=== PATIENT | female | born 1985 | race Caucasian/White ===

== ENCOUNTER 2018-12-18 20:50 | Outpatient (CLI) | payer MEDICAID, SELFPAY ==
[2017-07-27 12:12] VITALS: BMI 38.5
[2018-12-18 21:09] VITALS: BMI 37.8
[2018-12-18 22:29] LABS: Bacteria 0 SEEN /hpf (None Seen); Mucous, Urine 0 SEEN /hpf (<or=2+); Red Blood Cells-Urine 0 SEEN /hpf (0-5); White Blood Cells 0 SEEN /hpf (0-5)
[2018-12-18 22:30] LABS: Color, Urine Straw (Yellow); Glucose, Dipstick Normal (Normal); Ketone-Dipstick 50 mg/dl (Negative); Leukocyte Esterase-Dipstick Negative /ul (Negative); Nitrite-Dipstick Negative (Negative); Occult Blood-Urine Negative /ul (Negative); Protein-Dipstick Negative (Negative); Urine Bilirubin Dipstick Negative (Negative); Urine Clarity Clear (Clear); Urine Urobilinogen Normal (Normal)
[2018-12-18 22:35] LABS: Squamous Epithelial Cells - UA 0-5 SEEN /hpf (5-10)
--- NOTE | 2018-12-18 23:21 | OB.TRI.NOTE ---
- Problem List (1) 33 weeks gestation of Status: Acute (2) contractions Status: Acute History of Present Illness Date of Service: 12/18/18 Was patient seen by the physician?: Yes Reason For Visit: R/O LABOR Final NIK: 02/02/19 Final NIK Source: US >20 weeks Gestational age: 33 Weeks and 4 Days History of Present Illness: 33yo at 33 3/7wga presents with c/o contractions. She is here with her house manager who relates cervical exam at 6pm 1cm, 50% effacement. Patient with lower abdominal cramping and lower back pain. She has dry cough. No fever, chills, nausea, vomiting, stomach upset, diarrhea, dysuria, frequency, hematuria, vaginal discharge or discomfort. She has hx single 36w delivery and last two labors were precipitous with less than 1 hour of labor. Fetus remains active. No leaking of fluid or vaginal bleeding. Allergies No Known Allergies Allergy (Verified 07/27/17 13:32) Laboratory Studies: Laboratory Tests 12/18/18 Range/Units 22:25 Urine Color Straw (Yellow) Urine Clarity Clear (Clear) Urine pH 7.0 (5.0 - 8.0) Ur Specific [place] 1.010 (1.002-1.030) Urine Protein Negative (Negative) mg/dl Urine Glucose (UA) Normal (Normal) mg/dl Urine Ketones 50 H (Negative) mg/dl Urine Occult Blood Negative (Negative) /ul Urine Nitrite Negative (Negative) Urine Bilirubin Negative (Negative) mg/dL Urine Urobilinogen Normal (Normal) mg/dl Ur Leukocyte Esterase Negative (Negative) /ul Urine RBC 0 SEEN (0-5) /hpf Urine WBC 0 SEEN (0-5) /hpf Ur Squamous Epith Cells 0-5 SEEN (5-10) /hpf Urine Bacteria 0 SEEN (None Seen) /hpf Urine Mucus 0 SEEN (<or=2+) /hpf Physical Exam Vitals: AVSS General: Alert, Oriented x3, Cooperative, No apparent distress HEENT: Atraumatic, Normocephalic Abdomen: Soft, Non Tender, Non-Distended Neurological: Neuro grossly intact BOILERMAKER PIPE FITTER: Normal external genitalia Estimated gestational size: Appropriate for gestational size Presentation: Cephalic Cervix Dilation (cm): 2 Station: -3 Effacement (%): 50 NST - FHR Rate Baby A Baseline: 135 Variability:: Moderate Accelerations:: 10 x 10 Decelerations:: None NST Reactive:: Appropriate for gestational age, Non-Reactive FHR Category:: Category I Uterine Activity:: irritability to 3-4/10 min Impression/Plan 33yo with contractions. -U/A neg -FFN pending -Bedside US performed given hx 26w anatomy and dating US with GARIMA 29cm. Fetus normal in appearance. Pt indicated no GDM screening and no f/u US as yet. US today shows GARIMA 13cm, MVP 5.2cm. CEPHALIC, FUNDAL placenta, EFW 2045g (53rd% Billy), fetus active. Reviewed findings reassuring and non-concerning with patient and house manager. Addendum at 0024 on 12/19/18: Patient subsequently had emesis x 1 and FFN negative. Reviewed with patient likely had viral syndrome with associated false labor. FHR Cat I. Will obtain flu swab and discharge to home. Reviewed importance of adequate hydration, rest. Si/sx dehydration requiring further attention reviewed. Offered Tamiflu - r/b reviewed, pt declines. f/u with house manager as scheduled. Code Visit Office Visits / Consults: [id number] OV L2 New
--- NOTE | 2018-12-18 23:26 | OB.TRI.HP_ITS ---
- Problem List (1) 33 weeks gestation of Status: Acute (2) contractions Status: Acute History of Present Illness Date of Service: 12/18/18 Was patient seen by the physician?: Yes Reason For Visit: R/O LABOR Final NIK: 02/02/19 Final NIK Source: US >20 weeks Gestational age: 33 Weeks and 4 Days History of Present Illness: 33yo at 33 3/7wga presents with c/o contractions. She is here with her driver's license reviewing officer who relates cervical exam at 6pm 1cm, 50% effacement. Patient with lower abdominal cramping and lower back pain. She has dry cough. No fever, chills, nausea, vomiting, stomach upset, diarrhea, dysuria, frequency, hematuria, vaginal discharge or discomfort. She has hx single 36w delivery and last two labors were precipitous with less than 1 hour of labor. Fetus remains active. No leaking of fluid or vaginal bleeding. Allergies No Known Allergies Allergy (Verified 07/27/17 13:32) Laboratory Studies: Laboratory Tests 12/18/18 Range/Units 22:25 Urine Color Straw (Yellow) Urine Clarity Clear (Clear) Urine pH 7.0 (5.0 - 8.0) Ur Specific [place] 1.010 (1.002-1.030) Urine Protein Negative (Negative) mg/dl Urine Glucose (UA) Normal (Normal) mg/dl Urine Ketones 50 H (Negative) mg/dl Urine Occult Blood Negative (Negative) /ul Urine Nitrite Negative (Negative) Urine Bilirubin Negative (Negative) mg/dL Urine Urobilinogen Normal (Normal) mg/dl Ur Leukocyte Esterase Negative (Negative) /ul Urine RBC 0 SEEN (0-5) /hpf Urine WBC 0 SEEN (0-5) /hpf Ur Squamous Epith Cells 0-5 SEEN (5-10) /hpf Urine Bacteria 0 SEEN (None Seen) /hpf Urine Mucus 0 SEEN (<or=2+) /hpf Physical Exam Vitals: AVSS General: Alert, Oriented x3, Cooperative, No apparent distress HEENT: Atraumatic, Normocephalic Abdomen: Soft, Non Tender, Non-Distended Neurological: Neuro grossly intact SPEECH CORRECTION ASSISTANT: Normal external genitalia Estimated gestational size: Appropriate for gestational size Presentation: Cephalic Cervix Dilation (cm): 2 Station: -3 Effacement (%): 50 NST - FHR Rate Baby A Baseline: 135 Variability:: Moderate Accelerations:: 10 x 10 Decelerations:: None NST Reactive:: Appropriate for gestational age, Non-Reactive FHR Category:: Category I Uterine Activity:: irritability to 3-4/10 min Impression/Plan 33yo with contractions. -U/A neg -FFN pending -Bedside US performed given hx 26w anatomy and dating US with GARIMA 29cm. Fetus normal in appearance. Pt indicated no GDM screening and no f/u US as yet. US today shows GARIMA 13cm, MVP 5.2cm. CEPHALIC, FUNDAL placenta, EFW 2045g (53rd% Billy), fetus active. Reviewed findings reassuring and non-concerning with patient and driver's license reviewing officer. Addendum at 0024 on 12/19/18: Patient subsequently had emesis x 1 and FFN negative. Reviewed with patient likely had viral syndrome with associated false labor. FHR Cat I. Will obtain flu swab and discharge to home. Reviewed importance of adequate hydration, rest. Si/sx dehydration requiring further attention reviewed. Offered Tamiflu - r/b reviewed, pt declines. f/u with driver's license reviewing officer as scheduled. Code Visit Office Visits / Consults: [id number] OV L2 New
[2018-12-18 23:47] LABS: Fetal Fibronectin Negative
[2018-12-19 00:46] VITALS: RESP 20
== END 2018-12-19 00:46 | disposition home or self-care (01) ==
LOC: WPOUT 20:55 → WP 20:56
PROVIDERS: Referring Provider Obstetrics & Gynecology; Visit Provider Obstetrics & Gynecology
DX: O47.03 False labor before 37 completed weeks of gestation, third trimester (principal); O21.9 Vomiting of pregnancy, unspecified; Z3A.33 33 weeks gestation of pregnancy
CPT/HCPCS: 59025; 59050; 81001; 82731; 87804; 99218; G0378

== ENCOUNTER → 2020-08-10 12:22 | Outpatient (CLI) | payer MEDICAID, SELFPAY ==
--- NOTE | 2020-08-10 12:23 | US_ITS ---
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 TECHNIQUE: Transabdominal TECHNICAL QUALITY: Adequate. FINDINGS: There is a single intrauterine fetus. The fetus is in a variable presentation. There is demonstrated cardiac activity with a heart rate of 139 bpm. There is a normal amniotic fluid volume. The largest amniotic fluid pocket measures 3.1 cm x 1.7 cm. The amniotic fluid index (GARIMA) is within normal limits. The placenta is anterior in location and is not low lying. There are Grade 0 placental changes. The cervix measures 5.2 cm in length. BIOMETRY: BPD: 3.11 cm: 15 weeks, 6 days HC: 12.55 cm: 16 weeks, 3 days AC: 11.17 cm: 17 weeks, 1 days FL: 1.39 cm: 14 weeks, 1 days Age by LMP: 16 weeks, 4 days. NIK by LMP: 01/22/2020. age by current US: 16 weeks. 6 weeks, 0 days. NIK by current US: 01/26/2020. Estimated weight: 131 grams, +/- 19 grams, 5th percentile. Several linear densities are seen within the amniotic fluid suggestive of small bands. The posterior nuchal region of the fetus is thickened. 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 It is a female fetus. Urinary syndrome should be ruled out. There is deformity and foreshortening of the lower extremities. US/OB Limited With Biometrics IMPRESSION: Single live uterine gestation with a mean gestational age of 16 weeks. Multiple and mildly just described. The physician was notified of the results. Electronically Signed: Mehrdad Almaraz, at 14:14 EDT , Service support ,
[2020-08-10 15:01] LABS: Absolute Lymphocyte Count 2.82 X10^3/uL (0.83-4.51); Absolute Neutrophil Count 8.8 X10^3/uL (2.0-7.7); Basophil# 0.02 X10^3/uL; Basophil% 0.2 % (0-1); Eosinophil# 0.06 X10^3/uL; Eosinophils% 0.5 % (0-5); Hemoglobin 14.1 g/dL (12.0-15.0); Lymphocyte # 2.82 X10^3/ul (4.0); Lymphocyte % 22.7 % (19-41); Mean Corp Hgb Conc 33.6 g/dL (32-36); Mean Corpuscular Hgb 30.7 pg (27.0-32.0); Mean Corpuscular Volume 91.5 fL (81-99); Mean Platelet Vol. 10.9 fl (6.2-12.0); Monocyte% 5.6 % (0-10); NRBC Flagged by Analyzer 0 % (0-5); Neutrophil # 8.78 X10^3/uL (2.7-7.7); Neutrophil % 70.6 % (47-70); Platelet Count 244 K/mm3 (150-450); RBC Distribution Width CV 13.2 % (11.6-14.6); RBC Distribution Width SD 44.2 fl (35.1-43.9); Red Blood Count 4.59 M/mm3 (4.2-5.4); White Blood Count 12.4 K/mm3 (4.4-11.0)
[2020-08-10 16:08] LABS: HIV - WCH Non-Reactive (Nonreactive); Hepatitis B Surface Antigen Non-Reactive (Nonreactive); Hepatitis C Antibody Non-Reactive (Nonreactive)
[2020-08-10 18:13] LABS: Amphetamine Urine VISTA NEGATIVE (<1000 ng/mL); Barbiturate Urine VISTA NEGATIVE (< 200 ng/mL); Benzodiazepine Urine VISTA NEGATIVE (< 200 ng/mL); Cocaine Urine VISTA NEGATIVE (< 300 ng/mL); Ecstacy Urine VISTA NEGATIVE (< 500 ng/mL); Methadone Urine VISTA NEGATIVE (< 300 ng/mL); PCP Urine VISTA NEGATIVE (< 25 ng/mL); THC Urine VISTA NEGATIVE (< 50 ng/mL); Vista UDS pH Range 5
[2020-08-16 02:11] LABS: Rapid Plasmin Reagin (RPR) NONREACTIVE (NONREACTIVE)
== END ==
PROVIDERS: Referring Provider Obstetrics & Gynecology; Visit Provider Obstetrics & Gynecology
DX: O09.90 Supervision of high risk pregnancy, unspecified, unspecified trimester (principal); O09.92 Supervision of high risk pregnancy, unspecified, second trimester; Z3A.00 Weeks of gestation of pregnancy not specified
CPT/HCPCS: 36415; 76816; 80307; 85025; 86592; 86703; 86803; 86850; 86900; 86901; 87086; 87088; 87340

== ENCOUNTER 2020-09-04 18:45 | Inpatient (IN) | payer MEDICAID, SELFPAY ==
[2020-09-04] VITALS (9 sets, daily range): BP systolic 107–124; BP diastolic 61–76; PULSE 84–107; TEMP 36.9–37.3; O2SAT 98; BMI 37.1
[2020-09-04] MEDS: Lactated Ringers 1,000 ML 50 ML IV (19:25)
[2020-09-04 19:54] LABS: Hemoglobin 12.7 g/dL (12.0-15.0); Mean Corp Hgb Conc 33.4 g/dL (32-36); Mean Corpuscular Hgb 30.9 pg (27.0-32.0); Mean Corpuscular Volume 92.5 fL (81-99); Mean Platelet Vol. 11.4 fl (6.2-12.0); Platelet Count 227 K/mm3 (150-450); RBC Distribution Width CV 13.2 % (11.6-14.6); RBC Distribution Width SD 44.7 fl (35.1-43.9); Red Blood Count 4.11 M/mm3 (4.2-5.4); White Blood Count 10.4 K/mm3 (4.4-11.0)
[2020-09-04] MEDS: miSOPROStol 200 MCG Tablet 800 MCG VAGINAL (20:10)
[2020-09-05] VITALS (14 sets, daily range): BP systolic 102–125; BP diastolic 53–62; PULSE 74–90; RESP 18; TEMP 36.7–37.5; O2SAT 99
[2020-09-05] MEDS: miSOPROStol 200 MCG Tablet 400 MCG VAGINAL ×2 (00:05→04:25)
[2020-09-05] MEDS: Acetaminophen 325 MG Tablet 650 MG PO (03:20)
--- NOTE | 2020-09-05 05:05 | HP.PCM_ITS ---
- Problem List (1) Abnormal ultrasound of both kidneys Status: Acute Comment: bilateral echodense kidneys, ? 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 Also noted to have limb abnormalities. Referred to [facility]. Discussed may need to transfer care to [facility]- NOT OBSERVED ON SCAN 08/16 (5) Cleft lip of fetus Status: Acute (6) Cystic hygroma of fetus Status: Acute Comment: and facial edema (7) cardiac anomaly complicating , antepartum Status: Acute Comment: Chest: heart ratio 0.5 at this time (08/16) midline shift of heart, unable to adequately visualize cardiac structures (8) demise before 22 weeks with retention of fetus Status: Acute (9) Grand multiparity Status: Acute Comment: 8 prior vaginal deliveries at home. (10) History of hemorrhage Status: Acute Comment: At home with delivery of first child. Did not require transfer to hospital. (11) History of delivery Status: Acute Comment: Reports second baby delivered at 36 weeks. All other deliveries term (12) Increased nuchal translucency space on ultrasound Status: Acute Comment: Noted on ultrasound 08/10. Discussed strongly associated with genetic abnormalities. Refer to [facility]. Recommended genetic testing. Patient wishes to wait to discuss with maternal medicine at visit. 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 (14) Omphalocele of fetus in apar[place] , antepartum Status: Acute Comment: likely containing bladder (15) Status: Acute Qualifiers: Comment: Declined invasive testing with [facility]. NIPT done at [facility] office with expanded gene panel. (16) Supervision of high risk , antepartum Status: Acute Comment: NIK 01/21/21, Girl, PC: Niki James, Isela, Emilie, Estela, Geovany Farmer Jessica, Spouse: Darian History and Physical Date of Admission: 09/05/20 Intake Vital Signs 09/04/20 Height 5 ft 6 in 09/04/20 Weight: 230 lb 09/04/20 BP 114/80 Intake Visit Reasons: no FHT wt manager oracle database Chief Complaint: est ob, no FHT Hydraulic Chair Assembler Required: No Is patient in pain?: No Allergies No Known Allergies Allergy (Verified 09/04/20 13:54) Medications Pnv No.95/Ferrous Fum/Folic AC [ Formula] 1 ea PO DAILY 12/18/18 [History Confirmed 09/04/20] Last Menstral Period: 04/16/20 Zika: Zika virus screening: Negative : No PFSH PFSH Surgical History History of mandibular surgery (Resolved) Family History Father Cancer Grandmother Cancer x2 Social History (Updated 09/05/20 @ 04:[address] Shahida Dunham MD) Smoking Status: Never smoker alcohol intake: never substance use type: does not use caffeine: No additional social history: - Darian Pregancy History 13 Elective abortions Hx Para 8 Spontaneous abortions 4 Hx # Term Pregnancies Ectopic pregnancies Hx # Pregnancies Multiple births # of living children Past Pregnancies Del. Date Name GA/Weeks Outcome Route Bth Weight Infant Gen Labor Lgth Anesthesia Del Locatn Provider FOB Unknown Erika 2005 live - full term Home Unknown Niki 2007 36 live - Home Unknown Isela 2008 live - full term Home Unknown Emilie 2010 live - full term Home Unknown Estela 2012 live - full term Home Unknown Darian 2015 live - full term Home Unknown Geovany 2017 live - full term Home Unknown Tisha 2019 live - full term Home Delivery Date: PP hemorrhage but controlled at home nah Delivery Date: spotting at beginning of no other issues nah Delivery Date: No issues during or delivery Harley,Emilie Delivery Date: No issues during or delivery Harley,Emilie Delivery Date: No issues during or delivery Harley,Emilie Delivery Date: No issues during or delivery Harley,Emilie Delivery Date: No issues during or delivery Harley,Emilie Delivery Date: No issues during or delivery Emilie Souza HPI no FHT wt manager oracle database: Details: LANCE GEE is a 35 year old who presents for Evaluation secondary to the manager oracle database not being able to hear a heartbeat at home. Patient had a diagnosed with multiple anomalies including heart abnormalities, ambiguous genitalia, multiple anomalies of the brain, and shortened limbs. Patient denies any contractions or vaginal bleeding denies movement. OB Visit NIK Calculator Estimated Delivery Date Method Current WG Current Estimate 01/21/21 LMP (Certain) 20w 2d Other Estimates 01/19/21 Ultrasound #1 20w 4d Expected Delivery Route/Plan Specific Issue/Plans Initial Weight: Not Recorded Date EGA Weight BP Urine Prot Glucose FHR FuHt Pres Dilation Effaced St Visit Note 08/10/20 16w 4d 227 lb 108/70 139 GP - JAMIL from manager oracle database for abnormal ultrasound. US done today shows thickened NT and evidence of amniotic bands with limb abnormalities. Rec MFM FTC eval. 08/24/20 18w 4d 226 lb 4 oz 120/76 Negative Negative 140 GP - no cramping or bleeding. Feeling flutters of movement. Seen by MFM and diagnosed with multiple anomalies. Denies questions at this time. Next MFM appt 09/11. 09/04/20 20w 1d 230 lb 114/80 0 SM- no fht seen, no color doppler flow Diagnostics Diagnostics Diagnostics Blood Type AB POSITIVE 09/04/20 Antibody Screen NEGATIVE 09/04/20 HIV 1&2 Antibody Non-Reactive (Nonreactive) 08/10/20 Hgb 12.7 g/dL (12.0-15.0) 09/04/20 Hct 38.0 % (37-47) 09/04/20 RPR NONREACTIVE (NONREACTIVE) 08/10/20 Details: HIV: Urine Culture: Sequential Screen: NIPT Screen: ROS Const Reports system reviewed and no additional complaints, except as docu Card Reports system reviewed and no additional complaints, except as docu Resp Reports system reviewed and no additional complaints, except as docu GI Reports system reviewed and no additional complaints, except as docu, Reports nausea Reports system reviewed and no additional complaints, except as docu Musc Reports system reviewed and no additional complaints, except as docu Exam Const General: cooperative, healthy appearing, comfortable, anxious HENMT Head: normal to inspection Nose: external nose normal Face and sinus: normal facial exam Neck Neck: normal visual inspection, full ROM, no lymphadenopathy Thyroid: thyroid normal Chest Chest palpation & inspection: normal inspection of the chest Resp Effort & Inspection: normal respiratory effort GI Inspection: normal to inspection Palpation: soft, other (gravid uterus) Other: vertex and appropriate size for gestational age Other: Cervical Exam: Extrem General: pedal edema Assessment & Plan Problems 1. Z34.90 Declined invasive testing with [facility]. NIPT done at [facility] office with expanded gene panel. 2. Supervision of high risk , antepartum O09.90 NIK 01/21/21, Girl, PC: Niki James Leah, Estela Phan, Geovany Farmer Jessica, Spouse: Darian 3. Increased nuchal translucency space on ultrasound O28.3 Noted on ultrasound 08/10. Discussed strongly associated with genetic abnormalities. Refer to [facility]. Recommended genetic testing. Patient wishes to wait to discuss with maternal medicine at visit. 4. Amniotic band syndrome Q79.8 Multiple bands noted on ultrasound 08/10. Also noted to have limb abnormalities. Referred to [facility]. Discussed may need to transfer care to [facility]- NOT OBSERVED ON SCAN 08/16 5. Grand multiparity Z64.1 8 prior vaginal deliveries at home. 6. History of delivery Z87.51 Reports second baby delivered at 36 weeks. All other deliveries term 7. History of hemorrhage Z87.59 At home with delivery of first child. Did not require transfer to hospital. 8. Cystic hygroma of fetus and facial edema 9. Cleft lip of fetus 10. Omphalocele of fetus in apar[place] , antepartum O35.8XX0 likely containing bladder 11. Abnormal ultrasound of both kidneys R93.421; R93.422 bilateral echodense kidneys, ? lower position 12. cardiac anomaly complicating , antepartum O35.8XX0 Chest: heart ratio 0.5 at this time (08/16) midline shift of heart, unable to adequately visualize cardiac structures 13. Multiple anomalies of brain Q04.9 in fetus: abnormal brain midline with likely absent CSP, widen ventricles and sub-cerebellar cyst; central brain structures appear under developed. 14. Ambiguous genitalia Q56.4 in fetus 15. Abnormality of fetus affecting management of mother in [place]ar[place] O35.9XX0 proximal long bones are shortened (<1%) and distal long bones appear severely shortened or absent; difficult to visualize feet/hands 16. demise before 22 weeks with retention of fetus O36.4XX0 Plan demise likely secondary to multiple congenital anomalies likely genetic in origin. Discussed with patient and recommend induction of labor for delivery. Patient wishes to proceed. Plan Cytotec induction of labor and discussed risk of D&C needed after delivery for retained placenta. 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
--- NOTE | 2020-09-05 05:06 | OP.PCM_ITS ---
Problem List (1) Abnormal ultrasound of both kidneys Status: Acute Comment: bilateral echodense kidneys, ? 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 Also noted to have limb abnormalities. Referred to [facility]. Discussed may need to transfer care to [facility]- NOT OBSERVED ON SCAN 08/16 (5) Cleft lip of fetus Status: Acute (6) Cystic hygroma of fetus Status: Acute Comment: and facial edema (7) cardiac anomaly complicating , antepartum Status: Acute Comment: Chest: heart ratio 0.5 at this time (08/16) midline shift of heart, unable to adequately visualize cardiac structures (8) demise before 22 weeks with retention of fetus Status: Acute (9) Grand multiparity Status: Acute Comment: 8 prior vaginal deliveries at home. (10) History of hemorrhage Status: Acute Comment: At home with delivery of first child. Did not require transfer to hospital. (11) History of delivery Status: Acute Comment: Reports second baby delivered at 36 weeks. All other deliveries term (12) Increased nuchal translucency space on ultrasound Status: Acute Comment: Noted on ultrasound 08/10. Discussed strongly associated with genetic abnormalities. Refer to [facility]. Recommended genetic testing. Patient wishes to wait to discuss with maternal medicine at visit. 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 (14) Omphalocele of fetus in apar[place] , antepartum Status: Acute Comment: likely containing bladder (15) Status: Acute Qualifiers: Comment: Declined invasive testing with [facility]. NIPT done at [facility] office with expanded gene panel. (16) Supervision of high risk , antepartum Status: Acute Comment: NIK 01/21/21, Girl, PC: Niki James, Isela, Estela Phan Jacob, Jaron, Jessica, Spouse: Darian Vaginal Delivery Maternal Presentation: Medically Indicated Induction iol demise, multiple anomalies Method of Induction: Cytotec Amniotic Membrane Rupture Type: Spontaneous Amniotic Fluid Description: Clear Final NIK: 01/21/21 Gestational age: 20 Weeks and 2 Days Date of Procedure: 09/05/20 Pre-Operative Diagnosis: iol demise Post-Operative Diagnosis: same Surgery/ Procedure Performed: Spontaneous Vaginal Delivery Type of Anesthesia: None Description of Procedure: Patient delivered with amniotic sac intact and breech presentation clear fluid. Cord was cut and was examined and noted to have multiple anomalies with enlarged cystic hygroma and enlarged skull with blunted facial structures and low set features. Severely short and long bones and abdominal distention and anterior abdominal wall abnormality. With expectant management the placenta delivered spontaneously. EBL 100 cc. Presentation: Complete Breech Placental Delivery Description: Spontaneous Placenta Disposition: [facility] Cord Entanglement: Around neck x 1, tight, - - axillary Estimated Blood Loss: 100 A gender: Male Episiotomy Description: None Laceration: None Medications given after delivery: - - cytotec Complications: None Multi Select Codes - Urinary/Genital Urinary/Genital CPT Codes: 03170 Vaginal Delivery [facility]
--- NOTE | 2020-09-05 05:10 | DCINST_ITS ---
Discharge Diet: No Restrictions Discharge Activity: Return to Normal Activity, May not drive while taking narcotic pain medications., May Shower May resume sexual activity in: 4-6 weeks Call your doctor if your incision/area has: Continuous Slow Oozing, Sudden Increased Bleeding, Increased Pain/ Swelling, Increased Redness, Foul Smelling Discharge Additional Instructions: If you experience any of the following, contact your healthcare provider. * Bleeding that soaks a pad every hour for 2 hours * Fever 100.4 or higher * Unrelieved incision or abdominal pain * Swelling, redness, discharge or bleeding from your incision or episiotomy site * Your incision begins to separate * Problems urinating (including inability to urinate or burning while urinating). * Visual changes * Severe headache * Flu-like symptoms * Pain or redness in one of both of your breasts * Pain, warmth, tenderness or swelling in your legs, especially the calf area * Frequent nausea and vomiting * Symptoms of depression or anxiety If you experience any of the following, call 911 or go to the nearest Emergency Room. * Chest pain * Problems breathing * Seizure activity * Partial or complete paralysis of a body part, slurred speech, weakness or drooping of the face, or a sudden inability to walk or hold your balance Allergies/Adverse Reactions: Allergies No Known Allergies Allergy (Verified 09/04/20 13:54) Medications to take at Discharge Pnv No.95/Ferrous Fum/Folic AC [ Formula] 1 ea PO DAILY 12/18/18 Please Follow Up With: Shahida Dunham MD - [phone] When: Call to make an appointment with your doctor in 6 weeks. If you had elevated Blood pressure or 4th degree laceration you will need to be seen in 2 weeks. Primary Care Physician: Care Physician,No Primary [Primary Care Provider] - Test Results: Test results from this visit will be discussed in further detail at your follow- up appointment, if applicable.
--- NOTE | 2020-09-05 05:10 | PCM.DCVAG ---
Discharge Diet: No Restrictions Discharge Activity: Return to Normal Activity, May not drive while taking narcotic pain medications., May Shower May resume sexual activity in: 4-6 weeks Call your doctor if your incision/area has: Continuous Slow Oozing, Sudden Increased Bleeding, Increased Pain/ Swelling, Increased Redness, Foul Smelling Discharge Additional Instructions: If you experience any of the following, contact your healthcare provider. Bleeding that soaks a pad every hour for 2 hours Fever 100.4 or higher Unrelieved incision or abdominal pain Swelling, redness, discharge or bleeding from your incision or episiotomy site Your incision begins to separate Problems urinating (including inability to urinate or burning while urinating). Visual changes Severe headache Flu-like symptoms Pain or redness in one of both of your breasts Pain, warmth, tenderness or swelling in your legs, especially the calf area Frequent nausea and vomiting Symptoms of depression or anxiety If you experience any of the following, call 911 or go to the nearest Emergency Room. Chest pain Problems breathing Seizure activity Partial or complete paralysis of a body part, slurred speech, weakness or drooping of the face, or a sudden inability to walk or hold your balance Allergies/Adverse Reactions: Allergies No Known Allergies Allergy (Verified 09/04/20 13:54) Medications to take at Discharge Pnv No.95/Ferrous Fum/Folic AC [ Formula] 1 ea PO DAILY 12/18/18 Please Follow Up With: Shahida Dunham MD - [phone] When: Call to make an appointment with your doctor in 6 weeks. If you had elevated Blood pressure or 4th degree laceration you will need to be seen in 2 weeks. Primary Care Physician: Care Physician,No Primary [Primary Care Provider] - Test Results: Test results from this visit will be discussed in further detail at your follow-up appointment, if applicable.
--- NOTE | 2020-09-05 05:22 | PLAC_PTH ---
PATIENT: LANCE GEE I LOC: [facility] U#:[id number] AGE/SX: 35/F ROOM: WP021 RE09/04/[address]: Dr. Shahida Dunham MD : 1985 BED: 1 DIS: 09/05/2020 SPEC #: [id number] RECD: 09/05/20 08:59 STATUS: ALEX REShruthi #: [id number] NATALIE: 09/05/20 05:[address]: Shahida Dunham DEPT: SURGICAL PATHOLOGY RECD BY: Cristine Ahn ENTERED: 09/05/20 09:09 SP TYPE: PLACENTA OTHR DR: No Primary Care Phys Tissues: Placenta, NOS Procedures: Surgery Specimen Level IV HEADER OPERATION: Vaginal delivery PRE-OP DIAGNOSIS: demise 20.2 weeks TISSUE SUBMITTED: Placenta MICROSCOPIC DIAGNOSIS Placenta: Placental disc - immature placenta (101 gm). - Focal changes consistent with hemorrhagic endovasculitis. See comment. Membranes - no pathologic diagnosis. Umbilical cord - three blood vessels and no pathologic diagnosis. SJ:rg 09/10/20 COMMENT The changes may represent secondary to demise. MICROSCOPIC DESCRIPTION Slides are reviewed. GROSS DESCRIPTION SPECIMEN: PLACENTA / CLINICAL INFORMATION: A. Weight: Not noted B. Gestational Age: 20.2 weeks C. Sex: Male PLACENTAL WEIGHT (POST FIXATION): 101 gm PLACENTAL DIMENSIONS: 11 x 9 x 2 cm PLACENTAL SHAPE: Usual ovoid PLACENTAL WEIGHT FOR GESTATIONAL AGE: Within 10-99th percentile MEMBRANES - Present A. Insertion: Marginal B. Site of rupture from edge: The membranes are fragmented and appear to rupture 2 cm from edge of placental disc C. Color of membrane: Trejo-gaines D. Abnormalities: None UMBILICAL CORD - Present A. Color: Trejo-gaines B. Insertion: Central C. Length: 2.5 cm D. Diameter: 0.5 cm E. Number of vessels: Three F. Abnormalities: None Also present in the container are two detached segments of umbilical cord measuring 11 cm and 13 cm in length and 0.7 cm diameter. PLACENTAL DISC - Present A. Color of surface: Trejo-gaines B. surface abnormalities: None C. Maternal cotyledons: not well formed D. Attached retro placental clot: No clot E. Cut surface: pink and spongy F. Lesions: None G. Separate clot: Absent The maternal surface is disrupted. A few blood clots are noted at the peripheral portion of the placenta. SECTIONS SUBMITTED: 1. Membrane roll 2. Cord, end inked 3. Placental disc, and maternal surfaces 4. Placental disc, and maternal surfaces 5. Placental disc, and maternal surfaces 6. Placental disc, and maternal surfaces, peripheral portion of placenta with blood clots SJ:amarilys 09/07/20 TC:5 CPT: 04723
--- NOTE | 2020-09-05 06:39 | NURSING ---
Baby measurements: weight 10.4 oz height 8.5 inches head 5.5 inches
[2020-09-10 14:01] LABS: Pathology Specimen OB SEE PATHOLOGY REPORT
== END 2020-09-05 10:00 | disposition home or self-care (01) | DRG 560 ==
PROVIDERS: Admitting Provider Obstetrics & Gynecology; Visit Provider Obstetrics & Gynecology
DX: O36.4XX0 Maternal care for intrauterine death, not applicable or unspecified (principal); Z37.1 Single stillbirth; O12.04 Gestational edema, complicating childbirth; Z3A.20 20 weeks gestation of pregnancy; O41.8X20 Other specified disorders of amniotic fluid and membranes, second trimester, not applicable or unspecified; O35.8XX0 Maternal care for other (suspected) fetal abnormality and damage, not applicable or unspecified; O28.3 Abnormal ultrasonic finding on antenatal screening of mother
CPT/HCPCS: 59050; 85027; 86850; 86900; 86901; 88305; 88307; 99218; J7120; G0378

== ENCOUNTER → 2020-10-25 | Outpatient (CLI) | payer MEDICAID, SELFPAY ==
[2020-10-30 09:50] LABS: HPV APTIMA, High Risk Negative (Negative)
== END | disposition home or self-care (01) ==
PROVIDERS: Referring Provider Obstetrics & Gynecology; Visit Provider Obstetrics & Gynecology
DX: Z12.4 Encounter for screening for malignant neoplasm of cervix (principal)
CPT/HCPCS: 87624; 88175; G0145